=== PATIENT | female | born 2000 | race Two or more races ===

== ENCOUNTER 2018-05-03 21:24 | Emergency (ER) | payer OTHER, MEDICAID ==
[2018-05-03] MEDS ORDERED: ONDANSETRON 4 MG TAB.RAPDIS PO ONE (23:56)
--- NOTE | 2018-05-03 23:58 | ER Document Report ---
ED Medical Screen (RME) - General Chief Complaint: Back Pain Stated Complaint: DIZZY/STOMACH PAIN Time Seen by Provider: 05/03/18 23:56 Notes: 17-year-old female with a history of lupus, complains of abdominal pain and flank pain, she also admits to dysuria. She states she generally hurts all over as well. She denies fever or chills. She reports nausea but denies vomiting. LMP within the past month. She states she thinks she is having a lupus flare. She is on prednisone. TRAVEL OUTSIDE OF THE [place] IN LAST 30 DAYS: No Physical Exam - Vital signs Vitals: Temp Pulse Resp BP Pulse Ox 98.7 F 68 16 140/88 H 100 05/03/18 21:29 05/03/18 21:29 05/03/18 21:29 05/03/18 21:29 05/03/18 21:29 - General General appearance: Appears well In distress: None Course - Re-evaluation Re-evalutation: Patient denying current abdominal pain, reports current flank pain and nausea. Treating nausea, workup pending. I have greeted and performed a rapid initial assessment of this patient. A comprehensive ED assessment and evaluation of the patient, analysis of test results and completion of the medical decision making process will be conducted by additional ED providers. - Vital Signs Vital signs: Temp Pulse Resp BP Pulse Ox 98.7 F 68 16 140/88 H 100 05/03/18 21:29 05/03/18 21:29 05/03/18 21:29 05/03/18 21:29 05/03/18 21:29
[2018-05-04 00:25] LABS: ABSOLUTE EOSINOPHILS # (AUTO) 0.1 10^3/uL (0.0-0.6); ABSOLUTE LYMPHOCYTES (AUTO) 2.3 10^3/uL (0.5-4.7); ABSOLUTE MONOCYTES (AUTO) 0.5 10^3/uL (0.1-1.4); ABSOLUTE NEUT (AUTO) 3.5 10^3/uL (1.7-8.2); BASOPHILS % (AUTO) 0.5 % (0-2); EOSINOPHILS % (AUTO) 2.2 % (0-6); HEMATOCRIT 38.7 % (36.0-47.0); HEMOGLOBIN 13.5 g/dL (12.0-15.5); LYMPHOCYTES % (AUTO) 34.8 % (13-45); MEAN CORPUSCULAR HEMOGLOBIN 32.1 pg (27.0-33.4); MEAN CORPUSCULAR HGB CONC 34.8 g/dL (32.0-36.0); MEAN CORPUSCULAR VOLUME 92 fl (80-97); MONOCYTES % (AUTO) 8.4 % (3-13); PLATELET COUNT 204 10^3/uL (150-450); RED BLOOD COUNT 4.19 10^6/uL (3.72-5.28); RED CELL DISTRIBUTION WIDTH 12.8 % (11.5-14.0); SEGMENTED NEUTROPHILS % (AUTO) 54.1 % (42-78); TOTAL CELLS COUNTED % (AUTO) 100 %; WHITE BLOOD COUNT 6.5 10^3/uL (4.0-10.5)
--- NOTE | 2018-05-04 00:28 | ER Document Report ---
ED General - General Chief Complaint: Back Pain Stated Complaint: DIZZY/STOMACH PAIN Time Seen by Provider: 05/03/18 23:56 Notes: Patient is a 17-year-old female who presents with complaints of some pain that radiates from her back around into her suprapubic region. She says she does have some pain and burning when she pees and has been peeing more frequently than usual. She does have a history of lupus was concerned that maybe she is having a lupus flare; however, she has never had this happen symptoms associated with her lupus before. No chest pain or difficulty breathing. No swelling anterior extremities. She is currently on prednisone and mycophenolate for her lupus. She also takes lisinopril. No recent fevers. Some nausea but no vomiting. No diarrhea. No abnormal vaginal discharge or bleeding. No other complaints at this time. TRAVEL OUTSIDE OF THE [place] IN LAST 30 DAYS: No Past Medical History - Social History Smoking Status: Never Smoker Chew tobacco use (# tins/day): No Frequency of alcohol use: None Drug Abuse: None Family History: Reviewed & Not Pertinent Patient has suicidal ideation: No Patient has homicidal ideation: No - Past Medical History Cardiac Medical History: Reports: Hx Hypertension Renal/ Medical History: Denies: Hx Peritoneal Dialysis Past Surgical History: Reports: Hx Kidney (Renal Surgery) - biopsy, Hx Oral Surgery - wisdom teeth Review of Systems - Review of Systems Notes: My Normal Review Basic REVIEW OF SYSTEMS: CONSTITUTIONAL : Denies fever, chills, or sweats. Denies recent illness. CARDIOVASCULAR: Denies chest pain. RESPIRATORY: Denies cough, cold, or chest congestion. Denies shortness of breath, difficulty breathing, or wheezing. GASTROINTESTINAL: Lower abdominal pain. Denies nausea, vomiting, or diarrhea. GENITOURINARY: Denies difficulty urinating, painful urination, burning, frequency, or blood in urine. FEMALE GENITOURINARY: Denies vaginal bleeding, abnormal or irregular periods. MUSCULOSKELETAL: Lower back pain SKIN: Denies rash or skin lesions. NEUROLOGICAL: Denies altered mental status or loss of consciousness. Denies headache. Denies weakness or paralysis or loss of use of either side. Denies problems with gait or speech. Denies sensory or motor loss. ALL OTHER SYSTEMS REVIEWED AND NEGATIVE. Physical Exam - Vital signs Vitals: Temp Pulse Resp BP Pulse Ox 98.7 F 68 16 140/88 H 100 05/03/18 21:29 05/03/18 21:29 05/03/18 21:29 05/03/18 21:29 05/03/18 21:29 - Notes Notes: General Appearance: Well nourished, alert, cooperative, no acute distress, no obvious discomfort. Well appearing. Vitals: reviewed, See vital signs table. Head: no swelling or tenderness to the head Eyes: PERRL, EOMI, Conjuctiva clear Mouth: No decreasd moisture Lungs: No wheezing, No rales, No rhonci, No accessory muscle use, good air exchange bilaterally. Heart: Normal rate, Regular rythm, No murmur, no rub back: Mild pain with tapping over the low back on left and right. Abdomen: Normal BS, soft, No rigidity, mild diffuse abdominal tenderness palpation, No guarding, no rebound, no abdominal masses, no organomegaly Extremities: strength 5/5 in all extremities, good pulses in all extremities, no swelling or tenderness in the extremities, no edema. Skin: warm, dry, appropriate color, no rash Neuro: speech clear, oriented x 3, normal affect, responds appropriately to questions. Course - Re-evaluation Re-evalutation: 05/04/18 08:01 Patient's urinalysis does show evidence of UTI. Patient was placed on antibiotics. Her symptoms are consistent with UTI. Her analysis does not have a lot of white blood cells however she does have positive nitrates with dysuria therefore I think treatment is appropriate. Encouraged to return to ER immediately if she has worsening her symptoms, high fevers, vomiting, or feels unwell. Patient agrees with plan will be discharged home. Dictation of this chart was performed using voice recognition software; therefore, there may be some unintended grammatical errors. - Vital Signs Vital signs: Temp Pulse Resp BP Pulse Ox 98.0 F 61 20 139/94 H 100 05/04/18 01:51 05/04/18 01:51 05/04/18 01:51 05/04/18 01:51 05/04/18 01:51 - Laboratory Result Diagrams: 05/04/18 00:06 05/04/18 00:06 Laboratory results interpreted by me: 05/04/18 05/04/18 00:06 00:06 Chloride 108 H AST 85 H Urine Protein >=500 H Urine Nitrite POSITIVE H Ur Leukocyte Esterase TRACE H Discharge - Discharge Clinical Impression: UTI (urinary tract infection) Qualifiers: Urinary tract infection type: site unspecified Hematuria presence: without hematuria Qualified Code(s): N39.0 - Urinary tract infection, site not specified Condition: Good Disposition: HOME, SELF-CARE Additional Instructions: URINARY TRACT INFECTION: Your evaluation indicates that you have a urinary tract infection. This is due to germs growing in the bladder. This is a common problem. This infection usually responds quickly to antibiotics. Your antibiotic should be taken exactly as prescribed. Drink plenty of fluids -- three to four quarts a day. Occasionally, a bladder anesthetic will be prescribed to help stop the feeling of urgency until the antibiotic has a chance to clear the infection. This may cause your urine to be dark orange. Certain urine infections require a culture. If the doctor obtained a culture, the results will be back in two days. You should call to see if a change in treatment is needed. A repeat urinalysis after you finish treatment is often recommended. The physician will let you know if further testing is required. Call the doctor if you develop fever, chills, flank pain, inability to urinate, or blood in the urine. ANTIBIOTIC THERAPY: You have been given an antibiotic prescription. It's important that you take all the medication, unless instructed otherwise by your physician. Failure to complete the entire course can result in relapse of your condition. Common side effects of antibiotics include nausea, intestinal cramping, or diarrhea. Women may develop vaginal yeast infections, and babies can get yeast (thrush) in the mouth following the use of antibiotics. Contact your physician if you develop significant side effects from this medication. Allergy to this antibiotic can result in hives, wheezing, faintness, or itching. If symptoms of allergy occur, stop the medication and call the doctor. CEPHALEXIN: The antibiotic you've been prescribed is a member of the cephalosporin class. This type of antibiotic covers a wide variety of infections, including those of the skin, lungs, and urinary tract. It's useful for staph infections. This antibiotic is slightly similar to the penicillin family. In rare cases , a person who is allergic to penicillin will also be allergic to this medication. If you have had a severe allergic reaction to penicillin, and have not taken this antibiotic since that time, notify your doctor. Antibiotics which cover many germs ("broad spectrum" antibiotics) are more likely to cause diarrhea or "yeast" infections. Women prone to vaginal yeast problems may suffer an attack after taking this antibiotic. In infants, oral thrush (white spots "stuck" on the cheek) or yeast diaper rash may result. See your doctor if these problems occur. Call at once if you develop itching, hives , shortness of breath, or lightheadedness. FOLLOW-UP CARE: If you have been referred to a physician for follow-up care, call the physician s office for an appointment as you were instructed or within the next two days. If you experience worsening or a significant change in your symptoms, notify the physician immediately or return to the Emergency Department at any time for re-evaluation. Please take the antibiotic as prescribed. please follow up with your doctor on Tuesday for reevaluation. return to the ER if you have fevers,worsening pain, or vomiting. Prescriptions: Cephalexin Monohydrate [Keflex 500 mg Capsule] 500 mg PO BID #10 capsule
[2018-05-04 00:40] LABS: ALANINE AMINOTRANSFERASE 22 U/L (5-35); ALKALINE PHOSPHATASE 62 U/L (50-135); ANION GAP 8 (5-19); ASPARTATE AMINO TRANSFERASE 85 U/L (5-30); BILIRUBIN,DIRECT 0.3 mg/dL (0.0-0.4); BILIRUBIN,TOTAL 0.5 mg/dL (0.2-1.3); BLOOD UREA NITROGEN 11 mg/dL (7-20); CARBON DIOXIDE 25 mmol/L (22-30); CHLORIDE 108 mmol/L (98-107); GLUCOSE 87 mg/dL (75-110); SODIUM 141.4 mmol/L (137-145); TOTAL PROTEIN 7.1 g/dL (6.3-8.2)
[2018-05-04 00:48] LABS: APPEARANCE,URINE SLIGHTLY-CLOUDY; BILIRUBIN,URINE NEGATIVE (NEGATIVE); COLOR,URINE YELLOW; GLUCOSE, URINE NEGATIVE (NEGATIVE); KETONES,URINE NEGATIVE (NEGATIVE); LEUKOCYTE ESTERASE,URINE TRACE (NEGATIVE); NITRITE,URINE POSITIVE (NEGATIVE); PROTEIN,URINE >=500 mg/dL (NEGATIVE); URINE SPECIFIC GRAVITY 1.018; UROBILINOGEN,URINE NEGATIVE mg/dL (<2.0)
[2018-05-04] MEDS ORDERED: CEPHALEXIN 500 MG CAPSULE PO ONE (01:03)
[2018-05-04] MEDS ORDERED: CEPHALEXIN 500 MG CAPSULE ONE (01:35)
[2018-05-04 01:59] VITALS: BP 139/94
== END 2018-05-04 01:59 | disposition home or self-care (01) ==
LOC: ER 21:24
DX: N39.0 Urinary tract infection, site not specified (principal); M54.9 Dorsalgia, unspecified; R10.30 Lower abdominal pain, unspecified; R10.817 Generalized abdominal tenderness; I10 Essential (primary) hypertension
CPT/HCPCS: 99284; 36415; 87086; 85025; 81025; 87088; 80053; 81001; 87186; S0119

== ENCOUNTER 2018-06-02 22:35 | Emergency (ER) | payer OTHER, MEDICAID ==
--- NOTE | 2018-06-02 23:34 | ER Document Report ---
ED Medical Screen (RME) - General Chief Complaint: Headache Stated Complaint: FLANK PAIN,HEAD PAIN Time Seen by Provider: 06/02/18 23:34 Mode of Arrival: Ambulatory Information source: Patient Notes: 17-year-old female with a history of hypertension, lupus, valentino temperol migraines is complaining of sudden onset of bilateral temporal headache 5/5 with nausea and midline low back pain at 8 PM tonight. No fever or chills. DYER is normal loccation, but worse than usual. She started having vaginal spotting couple days ago after having been 2 months late for her menses but she did not think that she was . TRAVEL OUTSIDE OF THE [place] IN LAST 30 DAYS: No - Related Data Allergies/Adverse Reactions: No Known Allergies Allergy (Unverified 06/02/18 22:44) Past Medical History - Past Medical History Cardiac Medical History: Reports: Hx Hypertension Renal/ Medical History: Denies: Hx Peritoneal Dialysis Past Surgical History: Reports: Hx Kidney (Renal Surgery) - biopsy, Hx Oral Surgery - wisdom teeth Physical Exam - Vital signs Vitals: Temp Pulse Resp BP Pulse Ox 97.8 F 74 20 138/99 H 100 06/02/18 22:54 06/02/18 22:54 06/02/18 22:54 06/02/18 22:54 06/02/18 22:54 Course - Vital Signs Vital signs: Temp Pulse Resp BP Pulse Ox 97.8 F 74 20 138/99 H 100 06/02/18 22:54 06/02/18 22:54 06/02/18 22:54 06/02/18 22:54 06/02/18 22:54
[2018-06-02] MEDS ORDERED: METOCLOPRAMIDE HCL 10 MG TABLET PO ONE (23:51)
[2018-06-02] MEDS ORDERED: ACETAMINOPHEN 325 MG TABLET PO ONE (23:51)
[2018-06-03 00:12] LABS: APPEARANCE,URINE SLIGHTLY-CLOUDY; BILIRUBIN,URINE NEGATIVE (NEGATIVE); COLOR,URINE YELLOW; GLUCOSE, URINE NEGATIVE (NEGATIVE); KETONES,URINE TRACE mg/dL (NEGATIVE); LEUKOCYTE ESTERASE,URINE NEGATIVE (NEGATIVE); NITRITE,URINE NEGATIVE (NEGATIVE); PROTEIN,URINE >=500 mg/dL (NEGATIVE); URINE SPECIFIC GRAVITY 1.022; UROBILINOGEN,URINE NEGATIVE mg/dL (<2.0)
[2018-06-03] MEDS ORDERED: MORPHINE SULFATE 10 MG/ML INJ IV ONE (00:54)
[2018-06-03] MEDS ORDERED: NORMAL SALINE 1000 ML 1,000 ML IV ONE (00:55)
--- NOTE | 2018-06-03 01:13 | RADIOLOGY REPORT (SQ) ---
CT HEAD WITHOUT IV CONTRAST HISTORY: Headache. COMPARISON: None. TECHNIQUE: CT scan of the brain. This exam was performed according to our departmental dose-optimization program, which includes automated exposure control, adjustment of the mA and/or kV according to patient size and/or use of iterative reconstruction technique. FINDINGS: No acute intracranial hemorrhage or extra-axial fluid collection is seen. No midline shift, mass effect, or hydrocephalus. The murcia-white matter differentiation is preserved without evidence of acute infarction. There is age appropriate sulcal enlargement with cortical volume loss. Mild bilateral mucosal thickening of the maxillary sinuses. Mastoid air cells are clear. Calvarium is intact. IMPRESSION: No acute intracranial abnormality.
--- NOTE | 2018-06-03 01:22 | ER Document Report ---
ED General - General Chief Complaint: Headache Stated Complaint: FLANK PAIN,HEAD PAIN Time Seen by Provider: 06/02/18 23:34 Mode of Arrival: Ambulatory Notes: Patient is a 17-year-old female presents with complaint of headache. She says she has a bitemporal headache that started around 8 PM. She said it was fairly sudden onset. She did did have some nausea. She mentions back pain and the chief complaint but says that this is her chronic back pain and is unchanged. She says she does have some neck pain but again this is chronic and unchanged from baseline. No actual neck stiffness. No pain into the back of her head. She does have a history of lupus. She is on lisinopril which she has been taking for high blood pressure. She says she is to get similar headaches to this years ago before she was treated for high blood pressure and always thought they related to her high blood pressure. She is not aware of any family history of cerebral aneurysms. No recent fevers or infections. She is currently on prednisone and lisinopril. She denies any history of any kidney failure. She has had proteinuria in the past and that is how she was initially diagnosed with lupus was after workup for the proteinuria. TRAVEL OUTSIDE OF THE [place] IN LAST 30 DAYS: No - Related Data Allergies/Adverse Reactions: No Known Allergies Allergy (Unverified 06/02/18 22:44) Past Medical History - General Information source: Patient - Social History Smoking Status: Never Smoker Frequency of alcohol use: None Drug Abuse: None Family History: Reviewed & Not Pertinent Patient has suicidal ideation: No Patient has homicidal ideation: No - Past Medical History Cardiac Medical History: Reports: Hx Hypertension Neurological Medical History: Reports: Hx Migraine Renal/ Medical History: Denies: Hx Peritoneal Dialysis Past Surgical History: Reports: Hx Kidney (Renal Surgery) - biopsy, Hx Oral Surgery - wisdom teeth Review of Systems - Review of Systems Notes: My Normal Review Basic REVIEW OF SYSTEMS: CONSTITUTIONAL : Denies fever, chills, or sweats. Denies recent illness. EENT: Denies eye, ear, throat, or mouth pain or symptoms. Denies nasal or sinus congestion. CARDIOVASCULAR: Denies chest pain. RESPIRATORY: Denies cough, cold, or chest congestion. Denies shortness of breath, difficulty breathing, or wheezing. GASTROINTESTINAL: Denies abdominal pain. Some nausea. GENITOURINARY: Denies difficulty urinating, painful urination, burning, frequency, or blood in urine. FEMALE GENITOURINARY: Denies vaginal bleeding, abnormal or irregular periods. MUSCULOSKELETAL: Chronic Back pain. SKIN: Denies rash or skin lesions. NEUROLOGICAL: Denies altered mental status or loss of consciousness. Has a headache. Denies weakness or paralysis or loss of use of either side. Denies problems with gait or speech. Denies sensory or motor loss. ALL OTHER SYSTEMS REVIEWED AND NEGATIVE. Physical Exam - Vital signs Vitals: Temp Pulse Resp BP Pulse Ox 97.8 F 74 20 138/99 H 100 06/02/18 22:54 06/02/18 22:54 06/02/18 22:54 06/02/18 22:54 06/02/18 22:54 - Notes Notes: General Appearance: Well nourished, alert, cooperative, no acute distress, no obvious discomfort. Well-appearing. Vitals: reviewed, See vital signs table. Head: no swelling or tenderness to the head Eyes: PERRL, EOMI, Conjuctiva clear Mouth: No decreasd moisture Throat: No tonsillar inflammation, No airway obstruction, No lymphadenopathy Neck: Supple, no neck tenderness, No thyromegaly Lungs: No wheezing, No rales, No rhonci, No accessory muscle use, good air exchange bilaterally. Heart: Normal rate, Regular rythm, No murmur, no rub Abdomen: Normal BS, soft, No rigidity, No abdominal tenderness, No guarding, no rebound, no abdominal masses, no organomegaly Extremities: strength 5/5 in all extremities, good pulses in all extremities, no swelling or tenderness in the extremities, no edema. Skin: warm, dry, appropriate color, no rash Neuro: speech clear, oriented x 3, normal affect, responds appropriately to questions. Cranial nerves II through XII are intact. Distal sensation intact. Patient moves all extremities without any difficulty. Course - Re-evaluation Re-evalutation: 06/03/18 05:53 His headache was completely resolved with small dose of morphine. She was watched approximately hour after is receiving pain medicine the headache never returned. She looks and feels well. CT scan was obtained within 5 hours of onset of her headache and was negative. I do not suspect subarachnoid hemorrhage based on negative CT scan and the patient looking very well with complete resolution of her pain. Also patient does have some risk factors for sinus venous thrombosis. I did talk with the patient about this because she does have lupus. I informed her that currently do not think she has this as she looks very well even on presentation is not in any distress and does not have any visual changes and never appeared to be in that severe pain is seen with previous sinus thrombosis. I informed them at this time I do not think she needs an MRI of her head however if her headache is to return then she should return to ER for reevaluation and reconsideration for MRI because she does have a history of lupus. Patient has no focal neurologic deficits and looks well and I feel safe to be discharged home. Patient agrees with plan and will be discharged home. Dictation of this chart was performed using voice recognition software; therefore, there may be some unintended grammatical errors. - Vital Signs Vital signs: Temp Pulse Resp BP Pulse Ox 97.3 F 63 20 124/77 100 06/03/18 03:23 06/03/18 03:23 06/02/18 22:54 06/03/18 03:23 06/03/18 03:23 - Laboratory Result Diagrams: 06/03/18 01:26 06/03/18 01:26 Laboratory results interpreted by me: 06/02/18 06/03/18 06/03/18 23:52 01:26 01:26 Seg Neutrophils % 84.2 H Lymphocytes % 11.6 L Chloride 108 H Glucose 138 H Urine Protein >=500 H Urine Ketones TRACE H Discharge - Discharge Clinical Impression: Headache Qualifiers: Headache type: unspecified Headache chronicity pattern: acute headache Intractability: not intractable Qualified Code(s): R51 - Headache Condition: Good Disposition: HOME, SELF-CARE Additional Instructions: Please rest over the next 24 hours. Please have a low threshold to return to the ER immediately if you have recurrent headache, vomiting, visual changes, or feel unwell.
[2018-06-03 01:36] LABS: ABSOLUTE LYMPHOCYTES (AUTO) 0.7 10^3/uL (0.5-4.7); ABSOLUTE MONOCYTES (AUTO) 0.2 10^3/uL (0.1-1.4); ABSOLUTE NEUT (AUTO) 4.9 10^3/uL (1.7-8.2); BASOPHILS % (AUTO) 0.3 % (0-2); EOSINOPHILS % (AUTO) 0.3 % (0-6); HEMOGLOBIN 13.7 g/dL (12.0-15.5); LYMPHOCYTES % (AUTO) 11.6 % (13-45); MEAN CORPUSCULAR HEMOGLOBIN 32.4 pg (27.0-33.4); MEAN CORPUSCULAR VOLUME 93 fl (80-97); MONOCYTES % (AUTO) 3.6 % (3-13); PLATELET COUNT 178 10^3/uL (150-450); RED BLOOD COUNT 4.22 10^6/uL (3.72-5.28); RED CELL DISTRIBUTION WIDTH 12.6 % (11.5-14.0); SEGMENTED NEUTROPHILS % (AUTO) 84.2 % (42-78); TOTAL CELLS COUNTED % (AUTO) 100 %; WHITE BLOOD COUNT 5.8 10^3/uL (4.0-10.5)
[2018-06-03 01:50] LABS: ALANINE AMINOTRANSFERASE 26 U/L (5-35); ALBUMIN 4.2 g/dL (3.7-5.6); ALKALINE PHOSPHATASE 60 U/L (50-135); ANION GAP 13 (5-19); ASPARTATE AMINO TRANSFERASE 22 U/L (5-30); BILIRUBIN,DIRECT 0.3 mg/dL (0.0-0.4); BILIRUBIN,TOTAL 0.4 mg/dL (0.2-1.3); BLOOD UREA NITROGEN 12 mg/dL (7-20); CALCIUM 9.1 mg/dL (8.4-10.2); CARBON DIOXIDE 23 mmol/L (22-30); CHLORIDE 108 mmol/L (98-107); GLUCOSE 138 mg/dL (75-110); POTASSIUM 3.9 mmol/L (3.6-5.0); SODIUM 143.9 mmol/L (137-145); TOTAL PROTEIN 7.4 g/dL (6.3-8.2)
[2018-06-03 03:34] VITALS: BP 124/77
== END 2018-06-03 03:33 | disposition home or self-care (01) ==
LOC: ER 22:35
DX: R51 Headache (principal); R11.0 Nausea; M54.9 Dorsalgia, unspecified; G89.29 Other chronic pain; I10 Essential (primary) hypertension; Z79.899 Other long term (current) drug therapy
CPT/HCPCS: 99284; 96361; 96374; 36415; 87086; 85025; 81025; 80053; 81001; 70450; J2270; J7030